=== PATIENT | female | born 1980 | race African-American/Black ===

== ENCOUNTER 2018-04-29 12:49 | Emergency (ER) | payer MEDICARE, OTHER | END 2018-04-29 14:09 | disposition home or self-care (01) | LOC: ERS 12:49 | DX: M54.12 Radiculopathy, cervical region (principal) | CPT/HCPCS: 99283 ==

== ENCOUNTER 2021-11-14 09:17 | Day surgery (SDC) | payer MEDICARE, MEDICAID ==
[~2021-11-14 09:17] MED LIST: Acetaminophen 500 MG TAB PO SCH; Iron Sucrose Complex 500 MG in Sodium Chloride 0.9% 250 ML 250 ML IVPB SCH
[2021-11-14] MEDS ORDERED: Sodium Chloride 0.9% 10 ML ONE ×2 (09:25)
[2021-11-14] MEDS ORDERED: Acetaminophen 500 MG TAB ONE ×2 (09:25)
[2021-11-14 09:44] VITALS: BP 124/84
== END 2021-11-14 11:30 | disposition home or self-care (01) ==
LOC: ONC/OP 09:17
PROVIDERS: ATTEND Family Medicine
DX: K90.9 Intestinal malabsorption, unspecified (principal); R55 Syncope and collapse; T45.4X5A Adverse effect of iron and its compounds, initial encounter; E11.9 Type 2 diabetes mellitus without complications; D64.9 Anemia, unspecified
CPT/HCPCS: 36415; 80053; 85025; 93005; 96365; 96374; 96375; J1200; J1756; J2405; J2930; J7050; Q0162; S0028

== ENCOUNTER 2022-05-27 15:31 | Emergency (ER) | payer MEDICAID, MEDICARE, OTHER | END 2022-05-27 16:27 | disposition home or self-care (01) | LOC: ERS 15:31 | DX: K03.81 Cracked tooth (principal); K02.9 Dental caries, unspecified; E11.9 Type 2 diabetes mellitus without complications; D64.9 Anemia, unspecified; Z79.84 Long term (current) use of oral hypoglycemic drugs | CPT/HCPCS: 99282 ==